=== PATIENT | male | born 1945 | race Caucasian/White ===

== ENCOUNTER → 2018-02-03 | Outpatient (CLI) | payer OTHER, MEDICARE ==
[~2018-02-03] MED LIST: ONDA4TAB46 PO; SIMV10TA2 PO
--- NOTE | 2018-02-03 11:41 | DIAGNOSTIC IMAGING REPORT ---
R SHOULDER MIN 2 VIEWS ROUTINE HISTORY: 72 years-old Male M25.511 Chronic right shoulder [id number] chronic right shoulder pain COMPARISON: None available TECHNIQUE: 3 views of the right shoulder FINDINGS: Bones appear mildly demineralized. Moderate acromioclavicular and mild glenohumeral osteoarthritis. 4 mm sclerotic focus adjacent to the posterior facet greater tuberosity is noted. Imaged lung perez appear clear. Ribs appear intact. IMPRESSION: 1. No acute fracture or dislocation. 2. Mild glenohumeral and moderate AC joint osteoarthritis. 3. 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 The above report was generated using voice recognition software. It may contain grammatical, syntax or spelling errors. Electronically signed by: Franco Valladares M.D. 02/03/2018 11:39 AM Dictated Date/Time: 02/03/2018 11:38 AM
== END | disposition home or self-care (01) ==
LOC: C.RADBC 11:11
PROVIDERS: ATTEND Internal Medicine
DX: M25.511 Pain in right shoulder (principal); G89.29 Other chronic pain